=== PATIENT | female | born 2000 | race Caucasian/White ===

== ENCOUNTER 2024-02-21 18:10 | Inpatient (IN) | payer OTHER, MEDICAID, SELFPAY ==
[2024-02-21] VITALS (24 sets, daily range): BP systolic 119–147; BP diastolic 70–112; PULSE 91–112; RESP 16; TEMP 36.3–36.7; O2SAT 98–100; BMI 28.4
--- NOTE | 2024-02-21 08:54 | OB.TRI.NOTE ---
HPI - General General Date of Admission: 02/21/24 Date of Service: 02/21/24 Chief Complaint: contractions HPI Narrative JESS YOUNG, is a 23 F who presents c/o ctxs. PFSH PFSH Home Medications ?Medication ?Instructions ?Recorded ?Last Taken ?Type [id number] 1 mg tab PO 02/21/24 02/20/24 21:00 History tablet 1 TAB Allergy/AdvReac Type Severity Reaction Status Date / Time No Known Allergies Allergy Verified 02/21/24 06:39 NST FHR Rate Baby A Baseline: 145 Variability:: Moderate Accelerations:: 15 x 15 Decelerations:: None NST Reactive:: Yes FHR Category:: Category I Uterine Activity:: ctxs q2-3 min at times Assessment & Plan (1) 40 weeks gestation of : PLAN: d/c home, f/u prn or as scheduled no evidence of active labor kick counts (2) False labor after 37 completed weeks of gestation:
[2024-02-21] MEDS: Lactated Ringers 1,000 ML 50 ML IV (19:05)
[2024-02-21 19:13] LABS: Absolute Lymphocyte Count 1.24 X10^3/uL (0.83-4.51); Absolute Neutrophil Count 14.6 X10^3/uL (2.0-7.7); Basophil# 0.04 X10^3/uL; Basophil% 0.2 % (0-1); Eosinophil# 0.01 X10^3/uL; Eosinophils% 0.1 % (0-5); Hematocrit 41.5 % (37-47); Hemoglobin 13.9 g/dL (12.0-15.0); Lymphocyte # 1.24 X10^3/ul (0.83-4.51); Lymphocyte % 7.5 % (19-41); Mean Corp Hgb Conc 33.5 g/dL (32-36); Mean Corpuscular Hgb 29.3 pg (27.0-32.0); Mean Corpuscular Volume 87.6 fL (81-99); Mean Platelet Vol. 10.8 fl (6.2-12.0); Monocyte% 3.6 % (0-10); NRBC Flagged by Analyzer 0 % (0-5); Neutrophil # 14.57 X10^3/uL (2.7-7.7); Platelet Count 277 K/mm3 (150-450); RBC Distribution Width CV 12.4 % (11.6-14.6); RBC Distribution Width SD 39.9 fl (35.1-43.9); Red Blood Count 4.74 M/mm3 (4.2-5.4); White Blood Count 16.6 K/mm3 (4.4-11.0)
[2024-02-21 19:55] LABS: Syphilis Antibodies Non-reactive
[2024-02-21] MEDS: DiphenhydrAMINE 50 MG/ML Syringe 25 MG IV (19:55)
[2024-02-21] MEDS: Morphine 4 MG/ML Syringe IV (19:55)
[2024-02-21] MEDS: Lactated Ringers 1,000 ML 999 ML IV (21:40)
[2024-02-21] MEDS: fentaNYL-bupivacaine (epidural) 100 ML BAG EPIDURAL (23:00)
[2024-02-22] VITALS (36 sets, daily range): BP systolic 102–137; BP diastolic 60–84; PULSE 88–122; RESP 14–18; TEMP 36.3–37.3; O2SAT 97–100
[2024-02-22] MEDS: Oxytocin 15 Units/NS 250ml 15 UNITS/250 ML IV.SOLN 2 UNITS IV (01:58)
[2024-02-22] MEDS: Lactated Ringers 1,000 ML 200 ML IV ×2 (02:40→07:26)
[2024-02-22] MEDS: fentaNYL-bupivacaine (epidural) 100 ML BAG EPIDURAL ×2 (03:09→07:59)
[2024-02-22] MEDS: Ondansetron 4 MG/2 ML Vial IV (08:48)
[2024-02-22] MEDS: Oxytocin 15 Units/NS 250ml 15 UNITS/250 ML IV.SOLN 83 UNITS IV (12:14)
[2024-02-22] MEDS: Acetaminophen 500 MG Tablet PO (12:17)
--- NOTE | 2024-02-22 12:31 | EX.PCM.OBVAG ---
Vaginal Delivery Maternal Presentation Maternal Presentation: Active Labor Maternal Presentation: EARLY LABOR- AUGMENTED WITH PITOCIN Vaginal Delivery Information Procedure Performed: Spontaneous Vaginal Delivery Surgeon/Practitioner: Janina Leung Date of Procedure: 02/22/24 Pre-Procedure Diagnosis: 40 WEEKS, pyelectasis on ultrasound Post-Procedure Diagnosis: same, live male infant born Type of anesthesia: Epidural Estimated Blood Loss: 50 Time of Delivery: 11:41 Findings Description of procedure: Patient progressed to fully dilated. Good maternal pushing efforts about the head to the perineum. Patient was getting tired. There was a tight band at the vagina that the patient was having difficulty pushing through. Patient was getting exhausted and stated she needed help with delivery. Discussed with the patient episiotomy for expedited delivery- patient agreeable. Made a small RML episiotomy after episiotomy was made head was delivered followed by the anterior and posterior shoulder and the rest the 's body. Delayed cord clamping was performed. Pitocin was started. Cord is then clamped and cut. And the placenta was delivered intact without complication. The arm was repaired using a 2-0 Vicryl suture followed by 3-0 Rapide to close the skin. There were no other lacerations appreciated good hemostasis was appreciated fundus was firm. Presentation: Vertex Amniotic Membrane Rupture Type: Artificial Amniotic Fluid Description: Clear Placental Delivery Description: Expressed Placenta Disposition: [facility] Specimen collected: No Cord Vessel Description: 3 Vessels Cord Entanglement: None A Gender: Male (1 minute): 7 (5 minute): 8 Delayed Cord Clamping: Yes [employer] Technician brake rider: Yes Insurance Manager: apurva abernathy [id number] Tasks completed by assignment desk assistant: Retracting and Other (cutting sutures ) Additional assistant hvac mechanic?: No Post Vaginal Deli Medications given after delivery: IV Pitocin Episiotomy Description: Right Mediolateral and 2nd degree Laceration: None Complication Complications: No
--- NOTE | 2024-02-22 12:44 | PCM.HP.OB ---
HPI - General General Date of Admission: 02/21/24 Chief Complaint: contractions HPI Narrative Late entry : patient admitted by Dr. Kostas YOUNG, is a 23 F @ 40.3 weeks who presents c/o contractions- found to be in early labor- admitted and augmented with pitocin. PFSH PFSH Medical History no medical history Home Medications ?Medication ?Instructions ?Recorded ?Last Taken ?Type cgroeiqc-viv-[id number]-FA 1 mg tab PO 02/21/24 02/20/24 21:00 History tablet 1 TAB Allergy/AdvReac Type Severity Reaction Status Date / Time No Known Allergies Allergy Verified 02/21/24 06:39 Family History no significant family his Surgical History no surgical history Social History Smoking Status: Never smoker Vital Signs Vital Signs Vital Signs: 02/21/24 14:28 02/21/24 14:28 02/21/24 17:22 Temperature Temperature Source Pulse Rate 91 Respiratory Rate Blood Pressure 146/112 H BP Systolic 146 BP Diastolic 112 Pulse Ox 98 02/21/24 17:22 02/21/24 17:25 02/21/24 17:25 Temperature Temperature Source Pulse Rate 112 H 93 Respiratory Rate Blood Pressure 126/70 H BP Systolic 126 BP Diastolic 70 Pulse Ox 02/21/24 19:57 02/21/24 19:57 02/21/24 19:57 Temperature Temperature Source Pulse Rate 105 H Respiratory Rate Blood Pressure 135/93 H BP Systolic 135 BP Diastolic 93 Pulse Ox 98 02/21/24 19:57 02/21/24 19:57 02/21/24 19:57 Temperature 97.6 F L Temperature Source Temporal Pulse Rate Respiratory Rate 16 Blood Pressure BP Systolic BP Diastolic Pulse Ox 02/21/24 22:39 02/21/24 22:39 02/21/24 22:41 Temperature Temperature Source Pulse Rate 102 H Respiratory Rate Blood Pressure 147/81 H BP Systolic 147 BP Diastolic 81 Pulse Ox 100 02/21/24 22:41 02/21/24 22:44 02/21/24 22:44 Temperature Temperature Source Pulse Rate 109 H 108 H Respiratory Rate Blood Pressure BP Systolic BP Diastolic Pulse Ox 100 02/21/24 22:46 02/21/24 22:46 02/21/24 22:49 Temperature Temperature Source Pulse Rate 102 H 101 H Respiratory Rate Blood Pressure 137/79 H BP Systolic 137 BP Diastolic 79 Pulse Ox 02/21/24 22:49 02/21/24 22:51 02/21/24 22:51 Temperature Temperature Source Pulse Rate 101 H Respiratory Rate Blood Pressure 131/75 H BP Systolic 131 BP Diastolic 75 Pulse Ox 100 02/21/24 22:54 02/21/24 22:54 02/21/24 22:57 Temperature Temperature Source Pulse Rate 94 Respiratory Rate Blood Pressure 138/91 H BP Systolic 138 BP Diastolic 91 Pulse Ox 100 02/21/24 22:57 02/21/24 22:59 02/21/24 22:59 Temperature Temperature Source Pulse Rate 108 H 111 H Respiratory Rate Blood Pressure BP Systolic BP Diastolic Pulse Ox 98 02/21/24 23:01 02/21/24 23:01 02/21/24 23:01 Temperature 98.1 F Temperature Source Temporal Pulse Rate Respiratory Rate 16 Blood Pressure BP Systolic BP Diastolic Pulse Ox 02/21/24 23:02 02/21/24 23:02 02/21/24 23:03 Temperature Temperature Source Pulse Rate 104 H Respiratory Rate Blood Pressure 124/72 H 119/72 BP Systolic 124 119 BP Diastolic 72 72 Pulse Ox 02/21/24 23:03 02/21/24 23:04 02/21/24 23:04 Temperature Temperature Source Pulse Rate 99 107 H Respiratory Rate Blood Pressure BP Systolic BP Diastolic Pulse Ox 98 02/21/24 23:07 02/21/24 23:07 02/21/24 23:09 Temperature Temperature Source Pulse Rate 107 H 102 H Respiratory Rate Blood Pressure 124/79 H BP Systolic 124 BP Diastolic 79 Pulse Ox 02/21/24 23:09 02/21/24 23:11 02/21/24 23:11 Temperature Temperature Source Pulse Rate 104 H Respiratory Rate Blood Pressure 123/78 H BP Systolic 123 BP Diastolic 78 Pulse Ox 98 02/21/24 23:14 02/21/24 23:14 02/21/24 23:16 Temperature Temperature Source Pulse Rate 99 Respiratory Rate Blood Pressure 128/79 H BP Systolic 128 BP Diastolic 79 Pulse Ox 98 02/21/24 23:16 02/21/24 23:21 02/21/24 23:21 Temperature Temperature Source Pulse Rate 100 95 Respiratory Rate Blood Pressure 125/79 H BP Systolic 125 BP Diastolic 79 Pulse Ox 02/22/24 00:28 02/22/24 00:28 02/22/24 01:51 Temperature Temperature Source Pulse Rate 100 Respiratory Rate Blood Pressure 113/64 102/65 BP Systolic 113 102 BP Diastolic 64 65 Pulse Ox 02/22/24 01:51 02/22/24 01:52 02/22/24 01:52 Temperature Temperature Source Temporal Pulse Rate 95 Respiratory Rate 14 Blood Pressure BP Systolic BP Diastolic Pulse Ox 02/22/24 01:52 02/22/24 02:37 02/22/24 02:37 Temperature 97.6 F L Temperature Source Temporal Pulse Rate Respiratory Rate 14 Blood Pressure BP Systolic BP Diastolic Pulse Ox 02/22/24 02:37 02/22/24 02:38 02/22/24 02:38 Temperature 98.0 F Temperature Source Pulse Rate 108 H Respiratory Rate Blood Pressure 124/83 H BP Systolic 124 BP Diastolic 83 Pulse Ox 02/22/24 02:38 02/22/24 02:38 02/22/24 04:02 Temperature Temperature Source Pulse Rate 102 H Respiratory Rate Blood Pressure 106/63 BP Systolic 106 BP Diastolic 63 Pulse Ox 100 02/22/24 04:02 02/22/24 04:03 02/22/24 04:03 Temperature Temperature Source Temporal Pulse Rate 122 H Respiratory Rate 14 Blood Pressure BP Systolic BP Diastolic Pulse Ox 02/22/24 04:03 02/22/24 05:18 02/22/24 05:18 Temperature 97.4 F L Temperature Source Pulse Rate 96 Respiratory Rate Blood Pressure BP Systolic BP Diastolic Pulse Ox 97 02/22/24 05:19 02/22/24 05:19 02/22/24 05:19 Temperature Temperature Source Pulse Rate 94 Respiratory Rate 14 Blood Pressure 118/72 BP Systolic 118 BP Diastolic 72 Pulse Ox 02/22/24 05:19 02/22/24 06:08 02/22/24 06:08 Temperature 97.4 F L Temperature Source Pulse Rate 96 Respiratory Rate Blood Pressure BP Systolic BP Diastolic Pulse Ox 97 02/22/24 06:08 02/22/24 06:08 02/22/24 06:08 Temperature 97.5 F L Temperature Source Temporal Pulse Rate Respiratory Rate 16 Blood Pressure BP Systolic BP Diastolic Pulse Ox 02/22/24 06:09 02/22/24 06:09 02/22/24 07:27 Temperature Temperature Source Pulse Rate 88 Respiratory Rate Blood Pressure 117/66 133/81 H BP Systolic 117 133 BP Diastolic 66 81 Pulse Ox 02/22/24 07:27 02/22/24 07:27 02/22/24 07:27 Temperature Temperature Source Pulse Rate 88 98 Respiratory Rate Blood Pressure BP Systolic BP Diastolic Pulse Ox 100 02/22/24 07:27 02/22/24 07:27 02/22/24 07:27 Temperature 98.0 F Temperature Source Temporal Pulse Rate Respiratory Rate 16 Blood Pressure BP Systolic BP Diastolic Pulse Ox 02/22/24 08:40 02/22/24 08:40 02/22/24 08:40 Temperature Temperature Source Temporal Pulse Rate 116 H Respiratory Rate Blood Pressure 128/75 H BP Systolic 128 BP Diastolic 75 Pulse Ox 02/22/24 08:40 02/22/24 08:40 02/22/24 09:34 Temperature 97.6 F L Temperature Source Pulse Rate Respiratory Rate 18 Blood Pressure 123/76 H BP Systolic 123 BP Diastolic 76 Pulse Ox 02/22/24 09:34 02/22/24 09:34 02/22/24 09:34 Temperature Temperature Source Temporal Pulse Rate 111 H Respiratory Rate Blood Pressure BP Systolic BP Diastolic Pulse Ox 99 02/22/24 09:34 02/22/24 09:34 02/22/24 10:35 Temperature 97.9 F Temperature Source Pulse Rate Respiratory Rate 16 Blood Pressure 137/83 H BP Systolic 137 BP Diastolic 83 Pulse Ox 02/22/24 10:35 02/22/24 10:35 02/22/24 10:35 Temperature Temperature Source Temporal Pulse Rate 89 Respiratory Rate 18 Blood Pressure BP Systolic BP Diastolic Pulse Ox 02/22/24 10:35 02/22/24 12:00 02/22/24 12:00 Temperature 98.3 F Temperature Source Pulse Rate 96 Respiratory Rate Blood Pressure 129/80 H BP Systolic 129 BP Diastolic 80 Pulse Ox 02/22/24 12:00 02/22/24 12:00 02/22/24 12:00 Temperature 99.1 F Temperature Source Temporal Pulse Rate Respiratory Rate 18 Blood Pressure BP Systolic BP Diastolic Pulse Ox 02/22/24 12:15 02/22/24 12:15 02/22/24 12:15 Temperature Temperature Source Pulse Rate 97 Respiratory Rate 16 Blood Pressure 134/84 H BP Systolic 134 BP Diastolic 84 Pulse Ox 02/22/24 12:30 02/22/24 12:30 02/22/24 12:30 Temperature Temperature Source Pulse Rate 98 Respiratory Rate 18 Blood Pressure 126/71 H BP Systolic 126 BP Diastolic 71 Pulse Ox Weight Weight: 80 kg Body Mass Index (BMI) 28.4 Physical Exam Const alert and oriented x3 General Appearance: cooperative HEENT normocephalic GI GI Narrative: Gravid, non tender to palpation. OB / External & Speculum: external exam normal Extremity normal to inspection Skin no rashes or lesions noted Neuro oriented x3 and CN's II-XII intact bilaterally Psych Appearance: grossly normal Labs Labs Labs: Blood Type O POSITIVE Antibody Screen NEGATIVE Hct 41.5 % (37-47) Hgb 13.9 g/dL (12.0-15.0) Syphilis Total Ab Non-reactive Assessment & Plan (1) 40 weeks gestation of : (2) Pyelectasis of fetus on ultrasound: PLAN: Plan Admit to L&D [facility] FHR/TOCO Epidural if requested for pain Monitor VS Anticipate augment with pitocin
[2024-02-22] MEDS: Ibuprofen 600 MG Tablet PO (20:19)
[2024-02-23 00:20] VITALS: BP 117/68; PULSE 102; PULSE 90; PULSE 91; RESP 16; TEMP 36.6; O2SAT 97; O2SAT 98
[2024-02-23] MEDS: Acetaminophen 500 MG Tablet 1000 MG PO ×2 (00:24→16:05)
[2024-02-23 03:42] VITALS: BP 109/51; BP 109/57; PULSE 83; PULSE 87; TEMP 37.1; O2SAT 97
--- NOTE | 2024-02-23 07:54 | PCM.PN.CNM ---
Subjective Subjective Patient seen at bedside. Increased pain to perineum. Using ice packs. Ambulating and voiding without difficulty. Lochia decreasing. Breast feeding with support. Objective Data Objective Data Vital Signs: Vital Signs Temp Pulse Resp BP Pulse Ox O2 Del Method 98.7 F 87 16 109/51 L 97 Room Air 02/23/24 03:42 02/23/24 03:42 02/23/24 00:20 02/23/24 03:42 02/23/24 03:42 02/23/24 03:42 Oxygen Delivery Method Room Air Weight: 176 lb 5.917 oz Body Mass Index (BMI) 28.4 Intake & Output: Intake and Output for Last 24 Hours 02/21/24 02/22/24 02/23/24 23:59 23:59 23:59 Intake Total 1170.83 / 1170.83 3270.24 / 3270.24 Output Total 1700 / 1700 Balance 1170.83 / 1170.83 1570.24 / 1570.24 Lab / Micro Data Attestation: I reviewed the patient's lab results. 02/21/24 18:50 ROS Eyes Eyes: Denies blurry vision, change in vision or spots in vision ENT HEENT: Denies dizziness or headache(s) Cardiovascular Cardiovascular: Denies abdominal pain, chest pain or dyspnea Respiratory/Chest Respiratory/Chest: Denies cough, dyspnea, shortness of breath at rest or shortness of breath with exertion Gastrointestinal Gastrointestinal: Denies abdominal pain, diarrhea or vomiting Genitourinary Genitourinary: Denies change in urinary stream, difficulty urinating or dysuria Musculoskeletal Musculoskeletal: Reports none Integumentary Integumentary: Denies rash Neurologic Neurologic: Denies dizziness, headache(s), memory loss or weakness Physical Exam Const alert and no apparent distress General Appearance: cooperative and comfortable Exam Limitations: no limitations HEENT normocephalic Eyes General Eye: normal appearance of both eyes Neck full ROM General: normal visual inspection Chest Chest: symmetrical chest wall rise Resp normal respiratory effort and normal air movement Effort and Inspection: symmetric chest movement Auscultation: clear to auscultation bilaterally Cardio regular rate and regular rhythm GI normal to inspection, nondistended, normoactive bowel sounds Back/Spine normal ROM Extremity full ROM and no calf tenderness General Extremity: normal exam except as noted Skin no rashes or lesions noted Neuro oriented x3 Speech: speech normal Psych mental status grossly normal Thought Process: normal thought process Assessment & Plan (1) Pyelectasis of fetus on ultrasound: (2) (spontaneous vaginal delivery): (3) (infant): (4) Episiotomy pain: PLAN: Plan PPD 1 Pain control Ice/ TUCKS to perineum Increase ambulation support Anticipate D/C home tomorrow
[2024-02-23 09:26] VITALS: BP 123/75; PULSE 84; RESP 18; TEMP 36.4; O2SAT 97
[2024-02-23] MEDS: Senna/Docusate Sodium 1 Tablet PO (09:44)
[2024-02-23] MEDS: Ibuprofen 600 MG Tablet PO (10:22)
[2024-02-23 13:50] VITALS: BP 117/68; PULSE 95; PULSE 97; RESP 18; TEMP 36.7; O2SAT 97
[2024-02-23 15:53] VITALS: BP 122/67; PULSE 74; RESP 16; TEMP 36.6; O2SAT 97
[2024-02-23 15:54] VITALS: BP 122/67; PULSE 74
--- NOTE | 2024-02-27 18:06 | NURSING ---
Attempted to call [facility] for a follow-up phone call. No answer. Voicemail left.
== END 2024-02-23 17:45 | disposition home or self-care (01) | DRG 807 ==
LOC: WPOUT 18:22 → WP 18:22
PROVIDERS: Obstetrics & Gynecology; Admitting Provider Obstetrics & Gynecology; Referring Provider Obstetrics & Gynecology; Visit Provider Obstetrics & Gynecology
DX: O35.8XX0 Maternal care for other (suspected) fetal abnormality and damage, not applicable or unspecified (principal); Z37.0 Single live birth; Z3A.40 40 weeks gestation of pregnancy
CPT/HCPCS: 59025; 59050; 85025; 86780; 86850; 86900; 86901; 99221; G0378; J2405